=== PATIENT | female | born 1985 | race Caucasian/White ===

== ENCOUNTER 2019-08-30 23:15 | Emergency (ER) | payer OTHER ==
[~2019-08-30] VITALS: Ht 177.8 cm; Wt 97.7 kg
[~2019-08-30 23:15] MED LIST: ALLEGRA D 12 HO1 TER PO; BCP TD; CLARITIN D TAB1 TAB PO; COMBIVENT INH14.7 GM IH; LORTAB 5/500 501 TAB PO; NUVARING VAG RING VG; PHENERGAN W/CO120 ML PO; PROVENTIL0.09 MG/A1 IH; ZYRTEC-D 12HR 51 TER PO
[2019-08-30 23:19] VITALS: TEMP 97.8
[2019-08-31] MEDS ORDERED: NORCO 325 MG-51 TAB PO (01:14)
[2019-08-31 02:30] VITALS: BP 112/75; PULSE 68
== END 2019-08-31 02:30 | disposition home or self-care (01) ==
LOC: COL.ER 23:15
DX: S43.005A Unspecified dislocation of left shoulder joint, initial encounter (principal); J45.909 Unspecified asthma, uncomplicated; X50.1XXA Overexertion from prolonged static or awkward postures, initial encounter; Y92.009 Unspecified place in unspecified non-institutional (private) residence as the place of occurrence of the external cause
CPT/HCPCS: J2405; J2704; J3010; J7030

== ENCOUNTER → 2020-11-24 | Outpatient (CLI) | payer BC ==
[~2020-11-24] MED LIST changes: +NORCO 325 MG-51 TAB PO
== END ==
LOC: COL.RAD 08:33
DX: S43.005S Unspecified dislocation of left shoulder joint, sequela (principal); M21.922 Unspecified acquired deformity of left upper arm
CPT/HCPCS: A9585; Q9967